=== PATIENT | female | born 1990 | race Caucasian/White ===

== ENCOUNTER 2017-10-19 13:28 | Outpatient (CLI) | payer OTHER ==
[2017-10-19 14:41] LABS: RUPTURE FETAL MEMBRANES NEGATIVE (NEGATIVE)
== END 2017-10-19 15:30 | disposition home or self-care (01) ==
LOC: OBT 13:28 → L-D 13:32 → OBT 15:30
DX: O62.9 Abnormality of forces of labor, unspecified (principal); Z3A.36 36 weeks gestation of pregnancy
CPT/HCPCS: 76818; 84112

== ENCOUNTER 2017-11-06 14:34 | Outpatient (CLI) | payer OTHER | END 2017-11-06 17:04 | disposition home or self-care (01) | LOC: OBT 14:34 → L-D 14:34 → OBT 17:04 | DX: O36.8130 Decreased fetal movements, third trimester, not applicable or unspecified (principal); Z3A.38 38 weeks gestation of pregnancy | CPT/HCPCS: 76815; 76818 ==

== ENCOUNTER 2017-11-10 09:50 | Outpatient (CLI) | payer OTHER | END 2017-11-10 12:18 | disposition home or self-care (01) | LOC: OBT 09:50 → L-D 09:50 → OBT 12:18 | DX: O62.9 Abnormality of forces of labor, unspecified (principal); Z3A.39 39 weeks gestation of pregnancy | CPT/HCPCS: 76818 ==

== ENCOUNTER 2017-11-12 06:25 | Inpatient (IN) | payer OTHER ==
[2017-11-12] MEDS ORDERED: MISOPROSTOL 200 MCG TAB PR ×2 (08:00→20:00)
[2017-11-12] MEDS ORDERED: LIDOCAINE 1% (MPF) 30 ML INJ INJ (08:00)
[2017-11-12] MEDS ORDERED: IBUPROFEN 600 MG TAB PO (08:00)
[2017-11-12] MEDS ORDERED: BUTORPHANOL 2 MG INJ IV (08:00)
[2017-11-12] MEDS ORDERED: CARBOPROST 250 MCG INJ IM ×2 (08:00→20:00)
[2017-11-12] MEDS ORDERED: METHYLERGONOVINE 0.2 MG INJ IM ×2 (08:00→20:00)
[2017-11-12] MEDS ORDERED: OXYTOCIN 30 UNITS/LR 500 ML IV ×3 (08:00→20:00)
[2017-11-12] MEDS: LACTATED RINGER'S 1,000 ML IV* ×2 (10:06→14:09)
[2017-11-12] MEDS: OXYTOCIN 30 UNITS/LR 500 ML IV ×2 (10:16→19:39)
[2017-11-12 10:40] LABS: ADD MAN DIFF? NO
[2017-11-12 10:46] LABS: ABNORMAL IP MESSAGE 1; BASOPHILS % 0.3 % (0.0-2.0); EOSINOPHILS # 0.1 10^3/ul (0.0-0.5); EOSINOPHILS % 1.4 % (0.0-7.0); HEMOGLOBIN 9.9 g/dl (12.0-16.0); LYMPHOCYTES # 2.8 10^3/ul (0.8-2.9); LYMPHOCYTES % 32.2 % (15.0-51.0); MEAN CORPUSCULAR HEMOGLOBIN 25.9 pg (29.0-33.0); MEAN CORPUSCULAR HGB CONC 31.9 g/dl (32.0-37.0); MEAN CORPUSCULAR VOLUME 81.2 fl (82.0-101.0); MEAN PLATELET VOLUME 12.9 fl (7.4-10.4); MONOCYTE # 0.7 10^3/ul (0.3-0.9); MONOCYTES % 8.4 % (0.0-11.0); NEUTROPHIL # 4.9 10^3/ul (1.6-7.5); PLATELET COUNT 161 10^3/UL (140-415); RED BLOOD COUNT 3.82 10^6/ul (4.20-5.40)
[2017-11-12 10:46] LABS: WHITE BLOOD COUNT 8.7 10^3/ul (4.8-10.8)
[2017-11-12 10:47] LABS: POSITIVE DIFF @See below
[2017-11-12 11:03] LABS: INR 0.94; PROTIME 12.7 Sec (11.9-14.9)
[2017-11-12 11:04] LABS: PARTIAL THROMBOPLASTIN TIME 27.2 Sec (25.0-35.0)
[2017-11-12 12:47] LABS: HEPATITIS B SURFACE ANTIGEN NEGATIVE (NEGATIVE)
[2017-11-12] MEDS: CEFAZOLIN 2 GM/50 ML (PMX) 50 ML IVPB (17:00)
[2017-11-12] MEDS: CITRIC ACID/SODIUM CITRATE 15 ML CUP PO (17:55)
[2017-11-12] MEDS: ONDANSETRON 4 MG INJ IV (17:55)
[2017-11-12] MEDS ORDERED: FENTAnyl 50 MCG/ML VIAL ×2 (18:25→18:26)
[2017-11-12] MEDS ORDERED: morphine SULFATE/PF (10 MG/10 ML) INJ (18:25)
[2017-11-12] MEDS ORDERED: BUPIVACAINE 0.75%/DEXT (SPINAL) 2 ML INJ (18:26)
[2017-11-12] MEDS ORDERED: OXYTOCIN 10 UNIT INJ (18:26)
[2017-11-12] MEDS ORDERED: METOCLOPRAMIDE 10 MG INJ (18:26)
[2017-11-12] MEDS ORDERED: hydrALAzine 20 MG INJ IV (19:00)
[2017-11-12] MEDS ORDERED: FENTAnyl 50 MCG/ML VIAL IV ×3 (19:00)
[2017-11-12] MEDS ORDERED: DIPHENHYDRAMINE 50 MG INJ IV ×2 (19:00)
[2017-11-12] MEDS ORDERED: NALOXONE (0.4 MG/ML) INJ IV (19:00)
[2017-11-12] MEDS ORDERED: morphine 2 MG INJ IV ×2 (19:00)
[2017-11-12] MEDS ORDERED: OXYCODONE/ACETAMINOPHEN (5/325) TAB PO ×2 (19:00)
[2017-11-12] MEDS ORDERED: ONDANSETRON 4 MG INJ IV ×2 (19:00)
[2017-11-12] MEDS ORDERED: LABETALOL HCL 20MG INJ IV (19:00)
[2017-11-12] MEDS ORDERED: HYDROmorphONE 1 MG/5 ML IV SYRINGE IV ×3 (19:00)
[2017-11-12] MEDS ORDERED: ALBUTEROL 0.083% (NEB) 2.5 MG/3 ML AMP HHN (19:00)
[2017-11-12] MEDS ORDERED: EPHEDrine SULFATE 50 MG/5 ML SYG IV (19:00)
[2017-11-12] MEDS ORDERED: NALBUPHINE HCL (10 MG/1 ML) INJ IV (19:00)
[2017-11-12] MEDS ORDERED: MEPERIDINE 25 MG INJ IV (19:00)
[2017-11-12] MEDS ORDERED: IPRATROPIUM (NEB) 0.5 MG/2.5 ML AMP HHN (19:00)
[2017-11-12] MEDS ORDERED: TRIMETHOBENZAMIDE 100 MG/ML VIAL IM ×2 (19:00)
[2017-11-12] MEDS ORDERED: MIDAZOLAM 1 MG/ML 2 ML INJ IV (19:00)
[2017-11-12] MEDS: LACTATED RINGER'S 1,000 ML IV (19:44)
[2017-11-12] MEDS ORDERED: HYDROCODONE/APAP (5/325) TAB PO ×2 (20:00)
[2017-11-12] MEDS ORDERED: METHYLERGONOVINE 0.2 MG TAB PO (20:00)
[2017-11-12] MEDS: SENNA/DOCUSATE NA (8.6MG/50MG) TAB PO (21:00)
[2017-11-12 21:35] LABS: RAPID PLASMA REAGIN NONREACTIVE (NR)
[2017-11-13] MEDS: CEFAZOLIN 1 GM/50 ML (PMX) 50 ML IV (00:43)
[2017-11-13] MEDS: LACTATED RINGER'S 1,000 ML IV ×3 (03:44→19:44)
[2017-11-13] MEDS: OXYTOCIN 30 UNITS/LR 500 ML IV (04:22)
[2017-11-13] MEDS: KETOROLAC 30 MG INJ IV ×2 (05:58→15:56)
[2017-11-13] MEDS: SENNA/DOCUSATE NA (8.6MG/50MG) TAB PO ×2 (09:34→21:15)
[2017-11-13 11:07] LABS: ADD MAN DIFF? NO
[2017-11-13 11:14] LABS: BASOPHILS % 0.2 % (0.0-2.0); EOSINOPHILS % 0.4 % (0.0-7.0); HEMOGLOBIN 9.6 g/dl (12.0-16.0); LYMPHOCYTES # 1.6 10^3/ul (0.8-2.9); LYMPHOCYTES % 15.9 % (15.0-51.0); MEAN CORPUSCULAR HEMOGLOBIN 25.3 pg (29.0-33.0); MEAN CORPUSCULAR VOLUME 81.8 fl (82.0-101.0); MEAN PLATELET VOLUME 12.3 fl (7.4-10.4); MONOCYTE # 0.9 10^3/ul (0.3-0.9); MONOCYTES % 8.8 % (0.0-11.0); NEUTROPHIL # 7.4 10^3/ul (1.6-7.5); NEUTROPHILS % 74.3 % (39.0-77.0); PLATELET COUNT 119 10^3/UL (140-415); RED BLOOD COUNT 3.79 10^6/ul (4.20-5.40)
[2017-11-13 11:26] LABS: ANION GAP 15 (8-16); BLOOD UREA NITROGEN 8 mg/dl (7-20); CALCIUM 8.8 mg/dl (8.4-10.2); CARBON DIOXIDE 24 mmol/L (21-31); CHLORIDE 99 mmol/L (97-110); CREATININE 0.52 mg/dl (0.44-1.00); GLUCOSE 111 mg/dl (70-220); POTASSIUM 3.8 mmol/L (3.5-5.1); SODIUM 134 mmol/L (135-144)
[2017-11-13] MEDS: LACTATED RINGER'S 1,000 ML IV* ×3 (14:30→16:00)
[2017-11-13] MEDS: LANOLIN 7 GM TUBE TOP (16:05)
[2017-11-13] MEDS: IBUPROFEN 800 MG TAB PO (22:23)
[2017-11-14] MEDS: LACTATED RINGER'S 1,000 ML IV*
[2017-11-14] MEDS: LACTATED RINGER'S 1,000 ML IV (03:44)
[2017-11-14] MEDS: IBUPROFEN 800 MG TAB PO ×3 (06:04→22:15)
[2017-11-14] MEDS: SENNA/DOCUSATE NA (8.6MG/50MG) TAB PO ×2 (09:06→21:32)
[2017-11-15] MEDS: IBUPROFEN 800 MG TAB PO ×2 (05:30→13:47)
[2017-11-15] MEDS: SENNA/DOCUSATE NA (8.6MG/50MG) TAB PO (09:00)
[2017-11-15] MEDS: DIPHTH/TET/ACEL PERTUSS (ADULT) 0.5 ML VIAL IM* (09:50)
[2017-11-15] MEDS: MEASLES,MUMPS,RUBELLA VACCINE INJ SC* (09:51)
== END 2017-11-15 16:07 | disposition home or self-care (01) | DRG 766 ==
LOC: L-D 06:25 → PP1 21:52
PROVIDERS: Obstetrics & Gynecology
PROC: 10D00Z1 Extraction of Products of Conception, Low, Open Approach (ICD-10-PCS; principal; 2017-11-12 07:00)
DX: O62.0 Primary inadequate contractions (principal); O69.1XX0 Labor and delivery complicated by cord around neck, with compression, not applicable or unspecified; O36.63X0 Maternal care for excessive fetal growth, third trimester, not applicable or unspecified; Z3A.40 40 weeks gestation of pregnancy; Z37.0 Single live birth
CPT/HCPCS: 76815; 80048; 85025; 85610; 85730; 86592; 86850; 86900; 86901; 87340; 99464